=== PATIENT | male | born 1990 | race Caucasian/White ===

== ENCOUNTER → 2021-04-08 07:38 | Outpatient (CLI) | payer SELFPAY ==
[2021-04-08 07:02] VITALS: BMI 28.0
[2021-04-08 08:05] LABS: Absolute Lymphocyte Count 1.72 X10^3/uL (0.83-4.51); Absolute Neutrophil Count 3.7 X10^3/uL (2.0-7.7); Basophil# 0.05 X10^3/uL; Basophil% 0.8 % (0-1); Eosinophil# 0.33 X10^3/uL; Eosinophils% 5.1 % (0-5); Hematocrit 45.1 % (40-54); Hemoglobin 15.6 g/dL (13.0-16.5); Lymphocyte # 1.72 X10^3/ul (0.83-4.51); Lymphocyte % 26.6 % (19-41); Mean Corp Hgb Conc 34.6 g/dL (32-36); Mean Corpuscular Hgb 30.8 pg (27.0-32.0); Mean Corpuscular Volume 89.1 fL (80-94); Mean Platelet Vol. 8.1 fl (6.2-12.0); Monocyte# 0.63 X10^3/uL; Monocyte% 9.8 % (0-10); NRBC Flagged by Analyzer 0 % (0-5); Neutrophil # 3.71 X10^3/uL (2.7-7.7); Neutrophil % 57.4 % (47-70); Platelet Count 246 K/mm3 (150-450); RBC Distribution Width CV 12.3 % (11.6-14.6); RBC Distribution Width SD 39.9 fl (35.1-43.9); Red Blood Count 5.06 M/mm3 (4.6-6.2); White Blood Count 6.5 K/mm3 (4.4-11.0)
[2021-04-13 08:06] LABS: Alternaria tenuis <0.10 kU/L (Class 0); Ash, White 0.39 kU/L (Class I); Aspergillus fumigatus <0.10 kU/L (Class 0); Bermuda Grass 0.37 kU/L (Class I); Birch 0.17 kU/L (Class 0/I); Black Walnut 0.29 kU/L (Class 0/I); Cat Hair / Dander,Stand 0.77 kU/L (Class II); Cedar, Mountain 0.38 kU/L (Class I); Cladosporium herbarum <0.10 kU/L (Class 0); Cottonwood 0.23 kU/L (Class 0/I); D farinae Mite 0.46 kU/L (Class I); D pteronyssinus 0.41 kU/L (Class I); Dog Epithelia 2.52 kU/L (Class III); Elm, American White 0.32 kU/L (Class I); Immunoglobulin E 760 IU/mL (6-495); Maple/Box Elder 0.28 kU/L (Class 0/I); Mulberry, White 0.15 kU/L (Class 0/I); Oak, White 0.31 kU/L (Class 0/I); Pecan 0.27 kU/L (Class 0/I); Penicillium Notatum 0.22 kU/L (Class 0/I); Pigweed, Rough 0.31 kU/L (Class 0/I); Ragweed, Short/Common 0.36 kU/L (Class I); Russian Thistle 0.26 kU/L (Class 0/I); Sycamore, American 0.35 kU/L (Class I); Timothy Grass 0.35 kU/L (Class I)
[2021-04-13 08:45] LABS: Mouse Urine 4.32 kU/L (Class IV)
[2021-04-14 09:36] LABS: Aspirgillus flavus Negative (Neg:<1:1); Aspirgillus fumigatus Negative (Neg:<1:1); Aspirgillus niger Negative (Neg:<1:1); Cytoplasmic Ab (C-ANCA) <1:20 titer (Neg:<1:20)
[2021-04-14 11:16] LABS: Immunoglobulin E 813 IU/mL (6-495); Perinuclear Ab (P-ANCA) <1:20 titer (Neg:<1:20)
== END ==
PROVIDERS: PCP Family Medicine; Referring Provider Internal Medicine Critical Care Medicine; Visit Provider Internal Medicine Critical Care Medicine
DX: J45.909 Unspecified asthma, uncomplicated (principal)
CPT/HCPCS: 36415; 82785; 85025; 86003; 86256; 86606